=== PATIENT | female | born 1995 | race Caucasian/White ===

== ENCOUNTER → 2019-12-09 | Outpatient (CLI) | payer MEDICAID, OTHER ==
--- NOTE | 2019-12-10 04:15 | MR ---
EXAMINATION TYPE: MR brain wo/w con DATE OF EXAM: 12/09/2019 COMPARISON: None HISTORY: Swollen optic nerves CONTRAST: Standard multiplanar, multisequence MRI departmental protocol utilizing 8.5 mL intravenous Gadavist g adolinium contrast. Ventricles and sulci appear normal. There is no mass effect nor midline shift. There is no sign of in tracranial hemorrhage. There is a 3 mm focus of increased signal in the left side thalamus on the FLA IR images of doubtful significance. The brainstem is intact. Corpus callosum appears normal. Sella tu rcica appears normal. Cerebellum appears normal. Diffusion images show no evidence of acute infarct. The contrast images show no pathologic enhancement. There is normal enhancement of the venous sinuses . The globes are symmetric. There is no evidence of retro-orbital mass. There is no evidence of optic n erve abnormality. IMPRESSION: Negative MR scan of the brain. No evidence of demyelinating disease.
== END | disposition home or self-care (01) ==
LOC: RADMRIMAIN 14:53
PROVIDERS: ATTEND Ophthalmology
DX: H47.333 Pseudopapilledema of optic disc, bilateral (principal)
CPT/HCPCS: 70553; A9585

== ENCOUNTER 2020-07-07 18:18 | Emergency (ER) | payer MEDICAID, OTHER ==
[2020-07-07 18:24] VITALS: PULSE 78
[2020-07-07 19:05] LABS: Appearance,Urine Cloudy (Clear); Bilirubin,Urine Negative (Negative); Blood,Urine Small (Negative); Color,Urine Light Yellow; Glucose,Urine (UA) Negative (Negative); Ketones,Urine Negative (Negative); Leukocyte Esterase,Urine Negative (Negative); Mucus,Urine Rare /hpf; Nitrite,Urine Negative (Negative); PH, Urine 5.5 (5.0-8.0); Protein,Urine Negative (Negative); RBC,Urine <1 /hpf (0-5); Specific Gravity,Urine 1.007 (1.001-1.035); Squamous Epithelial Cell,Urine 1 /hpf (0-4); Urobilinogen,Urine <2.0 mg/dL (<2.0); WBC,Urine 1 /hpf (0-5)
[2020-07-07 19:07] LABS: Basophils # (A) 0.1 k/uL (0-0.2); Basophils % (A) 0 %; Eosinophils # (A) 0.2 k/uL (0-0.7); Eosinophils % (A) 2 %; HCT 42.4 % (34.0-46.0); HGB 13.6 gm/dL (11.4-16.0); Lymphocytes # (A) 3.8 k/uL (1.0-4.8); Lymphocytes % (A) 28 %; MCH 27.3 pg (25.0-35.0); MCHC 32.1 g/dL (31.0-37.0); MCV 84.9 fL (80.0-100.0); Monocytes # (A) 0.7 k/uL (0-1.0); Monocytes % (A) 5 %; Neutrophils # (A) 8.7 k/uL (1.3-7.7); Neutrophils % (A) 64 %; Platelet Count 294 k/uL (150-450); RBC 4.99 m/uL (3.80-5.40); WBC 13.6 k/uL (3.8-10.6)
[2020-07-07 19:20] LABS: ALT 15 U/L (4-34); AST 19 U/L (14-36); African American GFR (CKD) >90 (>60 ml/min/1.73 sqM); Albumin 4.8 g/dL (3.5-5.0); Alkaline Phosphatase 67 U/L (38-126); Anion Gap 13 mmol/L; Blood Urea Nitrogen 7 mg/dL (7-17); Calcium 9.5 mg/dL (8.4-10.2); Carbon Dioxide 23 mmol/L (22-30); Chloride 104 mmol/L (98-107); Glucose 96 mg/dL (74-99); Non-African American GFR(CKD) >90 (>60 ml/min/1.73 sqM); Potassium 3.8 mmol/L (3.5-5.1); Sodium 140 mmol/L (137-145); Total Bilirubin 0.3 mg/dL (0.2-1.3)
--- NOTE | 2020-07-07 19:26 | US ---
EXAMINATION TYPE: Transabdominal DATE OF EXAM: 07/07/2020 7:15 PM COMPARISON: NONE CLINICAL HISTORY: vag bleeding in . early ob with light bleeding today EXAM PERFORMED: OBTA/OBTV EXAM MEASUREMENTS: GESTATIONAL AGE / DATING Physician Established: Not yet established Dates by LMP: (6 weeks/4 days) EDC: 02/26/2021 Dates by First Scan: No previous this is first scan Dates by Current Scan for: Unable to date by today's study MATERNAL ANATOMY Uterus: 7.7 x 4.0 x 3.9cm Right Ovary: 2.6 x 1.7 x 1.5cm Left Ovary: not seen due to bowel Post CDS / Adnexa: wnl Presence of free fluid: mild within CDS Presence of corpus luteal cyst: no Presence of subchorionic bleed: no GESTATION / SURVEY No GS seen, endometrium = 1.0cm Date of LMP: 05/22/2020 Beta HcG (if available): 10 YESTERDAY, PENDING TODAY IMPRESSION: Uterus is empty. No adnexal mass or free fluid. No evidence of a gestational sac.
[2020-07-07 19:36] LABS: HCG,Quantitative Serum 4.2 mIU/mL
--- NOTE | 2020-07-07 19:41 | ED ---
Female Urogenital HPI - General Chief complaint: Vaginal Bleeding Stated complaint: Vaginal Bleeding, 4 Wks Time Seen by Provider: 07/07/20 18:24 Source: patient Mode of arrival: ambulatory Limitations: no limitations - History of Present Illness Initial comments: 25-year-old feel presenting today for chief complaint of vaginal bleeding in . pt states she had a positive fetus outpatient and an hCG level of 9 serum. She states that she now is having vaginal bleeding she is concerned of miscarriage. Patient denies pain patient denies heavy bleeding she states is like a. She denies additional complaints upon arrival patient is in no distress nontoxic appearance denies urinary symptoms. Last Menstrual Period: 05/22/20 - Related Data Allergies Allergy/AdvReac Type Severity Reaction Status Date / Time No Known Allergies Allergy Verified 07/07/20 18:24 Review of Systems ROS Statement: Those systems with pertinent positive or pertinent negative responses have been documented in the HPI. ROS Other: All systems not noted in ROS Statement are negative. Past Medical History Past Medical History: No Reported History History of Any Multi-Drug Resistant Organisms: None Reported Past Surgical History: No Surgical Hx Reported Past Psychological History: No Psychological Hx Reported Smoking Status: Never smoker Past Alcohol Use History: None Reported Past Drug Use History: None Reported General Exam - General Exam Comments Initial Comments: General: The patient is awake and alert, in no distress Eye: +3 mm pupils are equal, round and reactive to light, extra-ocular movements are intact. No nystagmus. There is normal conjunctiva bilaterally. No signs of icterus. Ears, nose, mouth and throat: There are moist mucous membranes and no oral lesions. Neck: The neck is supple, there is no tenderness or JVD. Cardiovascular: There is a regular rate and rhythm. No murmur, rub or gallop is appreciated. Respiratory: Lungs are clear to auscultation, respirations are non-labored, breath sounds are equal. No wheezes, stridor, rales, or rhonchi. Gastrointestinal: Soft, non-distended, non-tender abdomen without masses or organomegaly noted. There is no rebound or guarding present. : mild dark red blood small clots, os appears slightly open. no adnexal or cervical motion tenderness or discharge no odors. Musculoskeletal: Normal ROM, no tenderness. Strength 5/5. Sensation intact. Radial pulses equal bilaterally 2+. Neurological: A&O x 3. CN II-XII intact grossly, There are no obvious motor or sensory deficits. Coordination appears grossly intact. Speech is normal. Skin: Skin is warm and dry and no rashes or lesions are noted. Psychiatric: Cooperative, appropriate mood & affect, normal judgment. Limitations: no limitations Course Vital Signs 07/07/20 07/07/20 18:20 19:49 Temperature 97.8 F 97.4 F L Pulse Rate 78 78 Respiratory 16 18 Rate Blood Pressure 139/88 134/99 O2 Sat by Pulse 100 100 Oximetry Medical Decision Making - Medical Decision Making mild leukocytosis. Vaginal cultures pending. Urinalysisoverall unremarkable. Patient's ultrasound no IUP hCG less than <5. Not consistent with . concern patient miscarried patient is to repeat hCG in 2 days and follow up with [facility] patient is to return for pain or very heavy bleeding otherwise at this time feel patient stay for discharge with outpatient follow-up - Lab Data Result diagrams: 07/07/20 18:52 07/07/20 18:52 Lab Results 07/07/20 07/07/20 07/07/20 Range/Units 18:52 18:52 18:52 WBC 13.6 H (3.8-10.6) k/uL RBC 4.99 (3.80-5.40) m/uL Hgb 13.6 (11.4-16.0) gm/dL Hct 42.4 (34.0-46.0) % MCV 84.9 (80.0-100.0) fL MCH 27.3 (25.0-35.0) pg MCHC 32.1 (31.0-37.0) g/dL RDW 13.0 (11.5-15.5) % Plt Count 294 (150-450) k/uL MPV 8.0 Neutrophils % 64 % Lymphocytes % 28 % Monocytes % 5 % Eosinophils % 2 % Basophils % 0 % Neutrophils # 8.7 H (1.3-7.7) k/uL Lymphocytes # 3.8 (1.0-4.8) k/uL Monocytes # 0.7 (0-1.0) k/uL Eosinophils # 0.2 (0-0.7) k/uL Basophils # 0.1 (0-0.2) k/uL Sodium 140 (137-145) mmol/L Potassium 3.8 (3.5-5.1) mmol/L Chloride 104 (98-107) mmol/L Carbon Dioxide 23 (22-30) mmol/L Anion Gap 13 mmol/L BUN 7 (7-17) mg/dL Creatinine 0.75 (0.52-1.04) mg/dL Est GFR (CKD-EPI)AfAm >90 (>60 ml/min/1.73 sqM) Est GFR (CKD-EPI)NonAf >90 (>60 ml/min/1.73 sqM) Glucose 96 (74-99) mg/dL Calcium 9.5 (8.4-10.2) mg/dL Total Bilirubin 0.3 (0.2-1.3) mg/dL AST 19 (14-36) U/L ALT 15 (4-34) U/L Alkaline Phosphatase 67 (38-126) U/L Total Protein 8.0 (6.3-8.2) g/dL Albumin 4.8 (3.5-5.0) g/dL HCG, Quant 4.2 mIU/mL Urine Color Light Yellow Urine Appearance Cloudy H (Clear) Urine pH 5.5 (5.0-8.0) Ur Specific [place] 1.007 (1.001-1.035) Urine Protein Negative (Negative) Urine Glucose (UA) Negative (Negative) Urine Ketones Negative (Negative) Urine Blood Small H (Negative) Urine Nitrite Negative (Negative) Urine Bilirubin Negative (Negative) Urine Urobilinogen <2.0 (<2.0) mg/dL Ur Leukocyte Esterase Negative (Negative) Urine RBC <1 (0-5) /hpf Urine WBC 1 (0-5) /hpf Ur Squamous Epith Cells 1 (0-4) /hpf Urine Mucus Rare H (None) /hpf Trichomonas Ag (Rapid) (Negative) Blood Type Blood Type Recheck Bld Type Recheck Status 07/07/20 07/07/20 Range/Units 18:52 18:52 WBC (3.8-10.6) k/uL RBC (3.80-5.40) m/uL Hgb (11.4-16.0) gm/dL Hct (34.0-46.0) % MCV (80.0-100.0) fL MCH (25.0-35.0) pg MCHC (31.0-37.0) g/dL RDW (11.5-15.5) % Plt Count (150-450) k/uL MPV Neutrophils % % Lymphocytes % % Monocytes % % Eosinophils % % Basophils % % Neutrophils # (1.3-7.7) k/uL Lymphocytes # (1.0-4.8) k/uL Monocytes # (0-1.0) k/uL Eosinophils # (0-0.7) k/uL Basophils # (0-0.2) k/uL Sodium (137-145) mmol/L Potassium (3.5-5.1) mmol/L Chloride (98-107) mmol/L Carbon Dioxide (22-30) mmol/L Anion Gap mmol/L BUN (7-17) mg/dL Creatinine (0.52-1.04) mg/dL Est GFR (CKD-EPI)AfAm (>60 ml/min/1.73 sqM) Est GFR (CKD-EPI)NonAf (>60 ml/min/1.73 sqM) Glucose (74-99) mg/dL Calcium (8.4-10.2) mg/dL Total Bilirubin (0.2-1.3) mg/dL AST (14-36) U/L ALT (4-34) U/L Alkaline Phosphatase (38-126) U/L Total Protein (6.3-8.2) g/dL Albumin (3.5-5.0) g/dL HCG, Quant mIU/mL Urine Color Urine Appearance (Clear) Urine pH (5.0-8.0) Ur Specific [place] (1.001-1.035) Urine Protein (Negative) Urine Glucose (UA) (Negative) Urine Ketones (Negative) Urine Blood (Negative) Urine Nitrite (Negative) Urine Bilirubin (Negative) Urine Urobilinogen (<2.0) mg/dL Ur Leukocyte Esterase (Negative) Urine RBC (0-5) /hpf Urine WBC (0-5) /hpf Ur Squamous Epith Cells (0-4) /hpf Urine Mucus (None) /hpf Trichomonas Ag (Rapid) Negative (Negative) Blood Type A Positive Blood Type Recheck A Pos Bld Type Recheck Status No Disposition Clinical Impression: Threatened , Vaginal bleeding Disposition: HOME SELF-CARE Condition: Good Instructions (If sedation given, give patient instructions): Threatened Miscarriage (ED) Additional Instructions: Please use medication as discussed. Please follow-up with family doctor in the next 2 days. Can repeat HCG in 2 days. Follow-up with OBGYN in next week. Please return to emergency room if the symptoms increase or worsen or for any other concerns. Is patient prescribed a controlled substance at d/c from ED?: No Referrals: Gela Sweet DO [Primary Care Provider] - 1-2 days Time of Disposition: 19:41
[2020-07-07 20:00] VITALS: BP 134/99; RESP 18; TEMP 97.4
== END 2020-07-07 19:49 | disposition home or self-care (01) ==
LOC: EC 18:18
DX: O20.0 Threatened abortion (principal); Z3A.00 Weeks of gestation of pregnancy not specified
CPT/HCPCS: 36415; 76801; 76817; 80053; 81001; 84702; 85025; 86900; 86901; 87070; 87491; 87591; 87808; 99284

== ENCOUNTER 2020-11-10 14:17 | Emergency (ER) | payer BC, OTHER ==
[2020-11-10 14:48] VITALS: BP 133/91; PULSE 98; RESP 20; TEMP 98.6
[2020-11-10] MEDS ORDERED: SODIUM CHLORIDE 0.9% 1,000 ML IV STA (15:23)
[2020-11-10 16:26] LABS: Appearance,Urine Clear (Clear); Basophils # (A) 0.1 k/uL (0-0.2); Basophils % (A) 1 %; Bilirubin,Urine Negative (Negative); Blood,Urine Negative (Negative); Color,Urine Light Yellow; Eosinophils # (A) 0.2 k/uL (0-0.7); Eosinophils % (A) 2 %; Glucose,Urine (UA) Negative (Negative); HCT 40.7 % (34.0-46.0); Ketones,Urine Negative (Negative); Leukocyte Esterase,Urine Negative (Negative); Lymphocytes # (A) 2.4 k/uL (1.0-4.8); Lymphocytes % (A) 22 %; MCH 28.9 pg (25.0-35.0); MCHC 34.3 g/dL (31.0-37.0); MCV 84.2 fL (80.0-100.0); Mean Platelet Volume 7.9; Monocytes # (A) 0.6 k/uL (0-1.0); Monocytes % (A) 5 %; Neutrophils # (A) 7.5 k/uL (1.3-7.7); Neutrophils % (A) 69 %; Nitrite,Urine Negative (Negative); Platelet Count 282 k/uL (150-450); Protein,Urine Negative (Negative); RBC 4.84 m/uL (3.80-5.40); RDW 13.2 % (11.5-15.5); Urobilinogen,Urine <2.0 mg/dL (<2.0); WBC 10.8 k/uL (3.8-10.6)
[2020-11-10 16:40] LABS: ALT 14 U/L (4-34); AST 21 U/L (14-36); African American GFR (CKD) >90 (>60 ml/min/1.73 sqM); Albumin 4.3 g/dL (3.5-5.0); Alkaline Phosphatase 66 U/L (38-126); Anion Gap 8 mmol/L; Blood Urea Nitrogen 9 mg/dL (7-17); Calcium 9.3 mg/dL (8.4-10.2); Carbon Dioxide 23 mmol/L (22-30); Chloride 107 mmol/L (98-107); Glucose 91 mg/dL (74-99); Non-African American GFR(CKD) >90 (>60 ml/min/1.73 sqM); Potassium 4.1 mmol/L (3.5-5.1); Sodium 138 mmol/L (137-145); Total Bilirubin 0.2 mg/dL (0.2-1.3); Total Protein 6.9 g/dL (6.3-8.2)
--- NOTE | 2020-11-10 16:40 | ED ---
Female Urogenital HPI - General Chief complaint: Vaginal Bleeding Stated complaint: 5wks preg, spotting Time Seen by Provider: 11/10/20 15:21 Source: patient Mode of arrival: ambulatory Limitations: no limitations - History of Present Illness Initial comments: 25-year-old female, , 5 week based on last menstrual period presents to the emergency department with a chief complaint of vaginal bleeding. She reports having mild spotting only when she wipes this started about 2 hours ago but denies any abdominal cramping pain nausea vomiting. She reports a serum hCG was obtained and it was 17. She also tested multiple times last week with your test which IT positive. Patient is attempting to be . She denies any hematuria, hematochezia or melena. Denies increased urgency frequency or dysuria. Denies any back pain chest pain shortness of breath. Denies any fevers or chills. Her OB is Dr. Hernandez. She denies any other foul smell, vaginal discharge or irritation Last Menstrual Period: 09/30/20 - Related Data Allergies Allergy/AdvReac Type Severity Reaction Status Date / Time No Known Allergies Allergy Verified 11/10/20 14:48 Review of Systems ROS Statement: Those systems with pertinent positive or pertinent negative responses have been documented in the HPI. ROS Other: All systems not noted in ROS Statement are negative. Past Medical History Past Medical History: No Reported History History of Any Multi-Drug Resistant Organisms: None Reported Past Surgical History: No Surgical Hx Reported Past Psychological History: No Psychological Hx Reported Smoking Status: Never smoker Past Alcohol Use History: None Reported Past Drug Use History: Marijuana General Exam Limitations: no limitations General appearance: alert, in no apparent distress Head exam: Present: atraumatic, normocephalic, normal inspection Eye exam: Present: normal appearance, PERRL, EOMI ENT exam: Present: normal exam, normal oropharynx, mucous membranes moist Neck exam: Present: normal inspection, full ROM. Absent: tenderness, lym phadenopathy Respiratory exam: Present: normal lung sounds bilaterally. Absent: respiratory distress, wheezes, rales, rhonchi, stridor Cardiovascular Exam: Present: regular rate, normal rhythm, normal heart sounds. Absent: systolic murmur GI/Abdominal exam: Present: soft. Absent: distended, tenderness, guarding, rebound External exam: Present: normal external exam. Absent: erythema, swelling, lesions, ecchymosis Speculum exam: Present: normal speculum exam, cervical discharge (Skin blood noted at the vaginal vault). Absent: erythema, vaginal discharge, vaginal ble eding, foreign body Extremities exam: Present: normal inspection, full ROM, normal capillary refill. Absent: tenderness, pedal edema, joint swelling Back exam: Present: normal inspection, full ROM. Absent: tenderness, CVA tenderness (R), CVA tenderness (L) Neurological exam: Present: alert, oriented X3 Psychiatric exam: Present: normal affect, normal mood Skin exam: Present: warm, dry, intact, normal color Course Vital Signs 11/10/20 14:44 Temperature 98.6 F Pulse Rate 98 Respiratory 20 Rate Blood Pressure 133/91 O2 Sat by Pulse 99 Oximetry Medical Decision Making - Medical Decision Making 25-year-old female, , 5 week based on last menstrual period presents to the emergency department with a chief complaint of vaginal bleeding. Pelvic examination reveals scant amount of residual blood but no active bleeding. No abdominal tenderness. CBC reveals mild leukocytosis leg secondary to her . CMP and UA unremarkable. Patient had a hcg quant and it was 17. Repeat hCG today levels are 11.9. Pelvic ultrasound reveals no signs of an intrauterine . Patient likely having a miscarriage. I gave her a prescription for repeat hCG levels and also advised to follow up with her OB. Advised to return to department if her symptoms worsen. Case discussed with Dr. Kate. - Lab Data Result diagrams: 11/10/20 16:18 11/10/20 16:18 Lab Results 11/10/20 11/10/20 11/10/20 Range/Units 16:18 16:18 16:18 WBC 10.8 H (3.8-10.6) k/uL RBC 4.84 (3.80-5.40) m/uL Hgb 14.0 (11.4-16.0) gm/dL Hct 40.7 (34.0-46.0) % MCV 84.2 (80.0-100.0) fL MCH 28.9 (25.0-35.0) pg MCHC 34.3 (31.0-37.0) g/dL RDW 13.2 (11.5-15.5) % Plt Count 282 (150-450) k/uL MPV 7.9 Neutrophils % 69 % Lymphocytes % 22 % Monocytes % 5 % Eosinophils % 2 % Basophils % 1 % Neutrophils # 7.5 (1.3-7.7) k/uL Lymphocytes # 2.4 (1.0-4.8) k/uL Monocytes # 0.6 (0-1.0) k/uL Eosinophils # 0.2 (0-0.7) k/uL Basophils # 0.1 (0-0.2) k/uL Sodium 138 (137-145) mmol/L Potassium 4.1 (3.5-5.1) mmol/L Chloride 107 (98-107) mmol/L Carbon Dioxide 23 (22-30) mmol/L Anion Gap 8 mmol/L BUN 9 (7-17) mg/dL Creatinine 0.75 (0.52-1.04) mg/dL Est GFR (CKD-EPI)AfAm >90 (>60 ml/min/1.73 sqM) Est GFR (CKD-EPI)NonAf >90 (>60 ml/min/1.73 sqM) Glucose 91 (74-99) mg/dL Calcium 9.3 (8.4-10.2) mg/dL Total Bilirubin 0.2 (0.2-1.3) mg/dL AST 21 (14-36) U/L ALT 14 (4-34) U/L Alkaline Phosphatase 66 (38-126) U/L Total Protein 6.9 (6.3-8.2) g/dL Albumin 4.3 (3.5-5.0) g/dL HCG, Quant 11.9 mIU/mL Urine Color Light Yellow Urine Appearance Clear (Clear) Urine pH 5.0 (5.0-8.0) Ur Specific [place] 1.010 (1.001-1.035) Urine Protein Negative (Negative) Urine Glucose (UA) Negative (Negative) Urine Ketones Negative (Negative) Urine Blood Negative (Negative) Urine Nitrite Negative (Negative) Urine Bilirubin Negative (Negative) Urine Urobilinogen <2.0 (<2.0) mg/dL Ur Leukocyte Esterase Negative (Negative) Disposition Clinical Impression: Vaginal bleeding, Miscarriage Disposition: HOME SELF-CARE Condition: Stable Instructions (If sedation given, give patient instructions): Miscarriage (ED) Additional Instructions: Repeat obtaining hCG levels. Follow-up with her primary care physician. Return to emergency department if symptoms worsen. Is patient prescribed a controlled substance at d/c from ED?: No Referrals: Gela Sweet DO [Primary Care Provider] - 1-2 days Time of Disposition: 17:25
[2020-11-10 16:57] LABS: HCG,Quantitative Serum 11.9 mIU/mL
--- NOTE | 2020-11-10 17:02 | US ---
EXAMINATION TYPE: Transabdominal DATE OF EXAM: 11/10/2020 4:44 PM COMPARISON: NONE CLINICAL HISTORY: 4 week , vaginal bleeding. Spotting x 3 hours, 1, para 1, miscarria ge 1 EXAM PERFORMED: Transabdominal (TA) EXAM MEASUREMENTS: GESTATIONAL AGE / DATING Physician Established: Not yet established Dates by LMP: (5 weeks/6 days) EDC: 07/07/2021 Dates by First Scan: No previous this is first scan Dates by Current Scan for: No IUP seen at this t gregorio MATERNAL ANATOMY Uterus: 8.3 x 4.0 x 4.9cm, anteverted Endometrium: 1.2cm Right Ovary: 2.8 x 1.6 x 1.4cm Left Ovary: 3.0 x 1.9 x 2.2cm, 1.2 x 1.1 x 1.3cm hypoechoic area Post CDS / Adnexa: wnl Presence of free fluid: no Presence of corpus luteal cyst: not seen Presence of subchorionic bleed: no GESTATION / SURVEY IUP: No IUP seen at this time Date of LMP: 09/30/2020 Beta HcG (if available): Not available at time of exam IMPRESSION: No evidence of intrauterine gestational sac. No adnexal mass.
== END 2020-11-10 17:52 | disposition home or self-care (01) ==
LOC: EC 14:17
DX: O03.9 Complete or unspecified spontaneous abortion without complication (principal)
CPT/HCPCS: 36415; 76801; 80053; 81003; 84702; 85025; 87070; 96360; 96361; 99284

== ENCOUNTER 2021-01-25 12:04 | Emergency (ER) | payer BC, OTHER ==
[2021-01-25 13:01] VITALS: TEMP 98.6
--- NOTE | 2021-01-25 13:21 | ED ---
General Adult HPI - General Chief complaint: ENT Stated complaint: TMJ Time Seen by Provider: 01/25/21 13:00 Source: patient, RN notes reviewed Mode of arrival: ambulatory Limitations: no limitations - History of Present Illness Initial comments: Patient is a pleasant 25-year-old female presenting to the emergency department concerns for jaw dislocation. Patient states this morning she was chewing her vitamin and felt a pop right TMJ. Patient has had discomfort since that time. Patient states she is slightly limited and fully opening her mouth. No dyspnea. No history of similar symptoms previously. - Related Data Home Medications Medication Instructions Recorded Confirmed Multivitamins, Thera [Multivitamin 1 tab PO DAILY 01/25/21 01/25/21 (formulary)] Allergies Allergy/AdvReac Type Severity Reaction Status Date / Time No Known Allergies Allergy Verified 01/25/21 13:35 Review of Systems ROS Statement: Those systems with pertinent positive or pertinent negative responses have been documented in the HPI. ROS Other: All systems not noted in ROS Statement are negative. Constitutional: Denies: fever Eyes: Denies: eye pain ENT: Reports: as per HPI. Denies: ear pain Respiratory: Denies: cough Cardiovascular: Denies: chest pain Endocrine: Denies: fatigue Gastrointestinal: Denies: abdominal pain Genitourinary: Denies: dysuria Musculoskeletal: Denies: back pain Skin: Denies: rash Neurological: Denies: weakness Past Medical History Past Medical History: No Reported History History of Any Multi-Drug Resistant Organisms: None Reported Past Surgical History: No Surgical Hx Reported Past Psychological History: No Psychological Hx Reported Smoking Status: Never smoker Past Alcohol Use History: None Reported Past Drug Use History: Marijuana General Exam Limitations: no limitations General appearance: alert, in no apparent distress Head exam: Present: atraumatic Eye exam: Present: normal appearance ENT exam: Present: normal oropharynx, other (Mild discomfort right TMJ. No obvious dislocation. There is slight limitation with fully opening the mouth. Patient is able to close mouth without difficulty. Teeth align normally.) Neck exam: Present: normal inspection Respiratory exam: Present: normal lung sounds bilaterally Cardiovascular Exam: Present: regular rate, normal rhythm Neurological exam: Present: alert, CN II-XII intact Psychiatric exam: Present: normal affect, normal mood Skin exam: Present: normal color Course Vital Signs 01/25/21 12:58 Temperature 98.6 F Pulse Rate 85 Respiratory 18 Rate Blood Pressure 119/81 O2 Sat by Pulse 99 Oximetry Medical Decision Making - Medical Decision Making Patient reevaluated and updated. - Radiology Data Radiology results: image reviewed (Mandible x-ray without evidence of fracture or dislocation.) Disposition Clinical Impression: TMJ (sprain of temporomandibular joint) Disposition: HOME SELF-CARE Condition: Stable Instructions (If sedation given, give patient instructions): Temporomandibular Disorder (ED) Additional Instructions: [id number] Motrin as needed. Limit use of the jaw. No chewing gum or steak or similar. Ice to affected area. If symptoms continue follow-up with oral maxillary facial or dentist, number provided. Please do follow-up with primary care physician in the next day or 2 for recheck. Return for increased pain, worsening or changing symptoms or other concerns. Is patient prescribed a controlled substance at d/c from ED?: No Referrals: Gela Sweet DO [Primary Care Provider] - 1-2 days Travis Pavon DDS [STAFF PHYSICIAN] - 1-2 days Time of Disposition: 13:59
--- NOTE | 2021-01-25 13:42 | XR ---
EXAMINATION TYPE: XR mandible complete DATE OF EXAM: 01/25/2021 COMPARISON: NONE HISTORY: Popping injury with pain; rule out dislocation. TECHNIQUE: Complete mandible with open and closed mouth frontal along with both oblique projections a nd true lateral projection. FINDINGS: No acute fracture or dislocation. Temporomandibular joints are both maintained bilaterally and symmetric. Overlying soft tissue is unremarkable. IMPRESSION: As above.
[2021-01-25 14:15] VITALS: BP 117/76; PULSE 54; RESP 16
== END 2021-01-25 14:15 | disposition home or self-care (01) ==
LOC: EC 12:04
DX: S03.41XA Sprain of jaw, right side, initial encounter (principal); F12.90 Cannabis use, unspecified, uncomplicated; X50.1XXA Overexertion from prolonged static or awkward postures, initial encounter
CPT/HCPCS: 70110; 99283

== ENCOUNTER → 2021-02-12 | Outpatient (CLI) | payer OTHER | END | disposition home or self-care (01) | LOC: LABWHC1 16:14 | PROVIDERS: ATTEND Obstetrics & Gynecology | DX: N92.6 Irregular menstruation, unspecified (principal) | CPT/HCPCS: 36415; 84702 ==

== ENCOUNTER → 2021-05-22 | Outpatient (CLI) | payer BC, OTHER ==
--- NOTE | 2021-05-22 11:54 | US ---
EXAMINATION TYPE: US abdomen limited DATE OF EXAM: 05/22/2021 COMPARISON: Pain CLINICAL HISTORY: R10.11 RUQ ABDOMINAL PAIN. Pain EXAM MEASUREMENTS: Liver Length: 16.7 cm Gallbladder Wall: 0.1 cm CBD: 0.3 cm Right Kidney: 10.2 x 4.5 x 4.8 cm Pancreas: wnl Liver: wnl Gallbladder: wnl Evidence for sonographic Lorenzo's sign: neg CBD: wnl Right Kidney: No hydronephrosis or masses seen IMPRESSION: No acute process.
== END | disposition home or self-care (01) ==
LOC: RADUSWWP 10:12
PROVIDERS: ATTEND Obstetrics & Gynecology
DX: R10.11 Right upper quadrant pain (principal)
CPT/HCPCS: 76705

== ENCOUNTER 2021-06-29 14:32 | Emergency (ER) | payer BC, OTHER ==
[2021-06-29 14:36] VITALS: TEMP 98.7
[2021-06-29] MEDS ORDERED: SODIUM CHLORIDE 0.9% 1,000 ML IV STA (16:45)
--- NOTE | 2021-06-29 16:49 | ED ---
General Adult HPI - General Chief complaint: Dizziness Stated complaint: 24 wks preg/sob/high HR/cramping Time Seen by Provider: 06/29/21 16:36 Source: patient, RN notes reviewed Mode of arrival: ambulatory Limitations: no limitations - History of Present Illness Initial comments: This is a pleasant 26-year-old female who presents to emergency department complaining of chest pressure, shortness of breath, lightheadedness, and intermittent abdominal pain. The patient states she was at work at about noon when she developed some shortness of breath and chest pressure. Patient states it felt like something was sitting on her chest. About an hour later she started getting some fleeting sharp pains in her abdomen. She denies any vaginal bleeding. She denies any vaginal leakage. Patient is 24 weeks gestation. She is A0. No other health problems. They said they shortness of breath and chest discomfort has essentially subsided. She still getting some fleeting abdominal discomfort. The abdominal discomfort is not coming consistent intervals. No headache, no fever or chills, no changes in vision or hearing, no sore throat or difficulty with speech, no neck pain, no nausea or vomiting, no changes in urination or bowel movements, no numbness or tingling, no extremity pain, no skin rashes or lesions. - Related Data Home Medications Medication Instructions Recorded Confirmed No Known Home Medications 06/29/21 06/29/21 Allergies Allergy/AdvReac Type Severity Reaction Status Date / Time No Known Allergies Allergy Verified 06/29/21 17:12 Review of Systems ROS Statement: Those systems with pertinent positive or pertinent negative responses have been documented in the HPI. ROS Other: All systems not noted in ROS Statement are negative. Past Medical History Past Medical History: No Reported History History of Any Multi-Drug Resistant Organisms: None Reported Past Surgical History: No Surgical Hx Reported Past Psychological History: No Psychological Hx Reported Smoking Status: Never smoker Past Alcohol Use History: None Reported Past Drug Use History: Marijuana General Exam - General Exam Comments Initial Comments: Healthy-appearing 26-year-old female in no distress. Vital signs are reviewed and are stable. SpO2 is 100% on room air. Heart rate is 78. Limitations: no limitations General appearance: alert, in no apparent distress Head exam: Present: atraumatic, normocephalic, normal inspection Eye exam: Present: normal appearance, PERRL, EOMI. Absent: scleral icterus, conjunctival injection, periorbital swelling ENT exam: Present: normal exam, mucous membranes moist Neck exam: Present: normal inspection. Absent: tenderness, meningismus, lymphadenopathy Respiratory exam: Present: normal lung sounds bilaterally. Absent: respiratory distress, wheezes, rales, rhonchi, stridor Cardiovascular Exam: Present: regular rate, normal rhythm, normal heart sounds. Absent: systolic murmur, diastolic murmur, rubs, gallop, clicks GI/Abdominal exam: Present: soft, normal bowel sounds, other (Gravid uterus consistent with dates. No tenderness). Absent: distended, tenderness, guarding, rebound, rigid Extremities exam: Present: normal inspection, full ROM, normal capillary refill. Absent: tenderness, pedal edema, joint swelling, calf tenderness Back exam: Present: normal inspection Neurological exam: Present: alert, oriented X3, CN II-XII intact Psychiatric exam: Present: normal affect, normal mood Skin exam: Present: warm, dry, intact, normal color. Absent: rash Course Vital Signs 06/29/21 06/29/21 14:33 18:00 Temperature 98.7 F Pulse Rate 78 73 Respiratory 20 18 Rate Blood Pressure 123/80 126/85 O2 Sat by Pulse 100 99 Oximetry - Reevaluation(s) Reevaluation #1: 06/29/21 17:50 Medical record is reviewed Symptoms are improved here in the emergency department Patient is informed of results and questions answered Patient in no distress EKG Findings - EKG Comments: EKG Findings:: EKG done at 5:07 PM and reviewed by the attending physician reveals a ventricular rate of 73. QTC of 473. Normal intervals otherwise. No evidence of acute ST elevation. Inverted T wave in lead 3. Biphasic P wave and V3. No other acute changes. Normal axis. Medical Decision Making - Medical Decision Making General workup to include abdominal/cardiac workup, plan for obstetric consultation. Case was immediately discussed with ED attending physician regarding her clinical workup. We'll touch base with the mother baby as the patient's main symptoms at this time of fleeting abdominal pains. We'll order an ultrasound. Presentation not consistent with pulmonary embolism as the patient has no respiratory distress, no tachycardia, SpO2 is 100% on room air. A BMP. We will complete the cardiac evaluation, will get heart tones. They will send somebody from the unit. Plan to send the patient to mother-baby for evaluation. Patient was improved prior to discharge. Troponin was negative. EKG was essentially normal. All findings reviewed with the patient as well as ED attending physician, Dr. Meade. Patient will be sent to mother-baby for e valuation. Follow-up with your regular physician as directed. Return to the ER immediately if any symptoms worsen, new symptoms arise, or any other problems develop. I did discuss the possibility of false negative COVID-19 testing. Ultrasound shows a 24 week 6 day gestation with heart rate of 146. No other complicating findings. Patient released to mother-baby - Lab Data Result diagrams: 06/29/21 16:57 06/29/21 16:57 Lab Results 06/29/21 06/29/21 06/29/21 Range/Units 14:41 16:57 16:57 WBC 11.1 H (3.8-10.6) k/uL RBC 4.14 (3.80-5.40) m/uL Hgb 12.5 (11.4-16.0) gm/dL Hct 37.0 (34.0-46.0) % MCV 89.5 (80.0-100.0) fL MCH 30.3 (25.0-35.0) pg MCHC 33.8 (31.0-37.0) g/dL RDW 13.8 (11.5-15.5) % Plt Count 230 (150-450) k/uL MPV 8.4 Neutrophils % 73 % Lymphocytes % 20 % Monocytes % 5 % Eosinophils % 1 % Basophils % 0 % Neutrophils # 8.1 H (1.3-7.7) k/uL Lymphocytes # 2.2 (1.0-4.8) k/uL Monocytes # 0.5 (0-1.0) k/uL Eosinophils # 0.2 (0-0.7) k/uL Basophils # 0.0 (0-0.2) k/uL Sodium 136 L (137-145) mmol/L Potassium 3.5 (3.5-5.1) mmol/L Chloride 106 (98-107) mmol/L Carbon Dioxide 20 L (22-30) mmol/L Anion Gap 10 mmol/L BUN 5 L (7-17) mg/dL Creatinine 0.45 L (0.52-1.04) mg/dL Est GFR (CKD-EPI)AfAm >90 (>60 ml/min/1.73 sqM) Est GFR (CKD-EPI)NonAf >90 (>60 ml/min/1.73 sqM) Glucose 91 (74-99) mg/dL Calcium 8.9 (8.4-10.2) mg/dL Total Bilirubin 0.4 (0.2-1.3) mg/dL AST 17 (14-36) U/L ALT 10 (4-34) U/L Alkaline Phosphatase 69 (38-126) U/L Troponin I (0.000-0.034) ng/mL Total Protein 6.9 (6.3-8.2) g/dL Albumin 3.8 (3.5-5.0) g/dL Lipase 64 (23-300) U/L Urine Color Urine Appearance (Clear) Urine pH (5.0-8.0) Ur Specific [place] (1.001-1.035) Urine Protein (Negative) Urine Glucose (UA) (Negative) Urine Ketones (Negative) Urine Blood (Negative) Urine Nitrite (Negative) Urine Bilirubin (Negative) Urine Urobilinogen (<2.0) mg/dL Ur Leukocyte Esterase (Negative) Urine RBC (0-5) /hpf Urine WBC (0-5) /hpf Ur Squamous Epith Cells (0-4) /hpf Amorphous Sediment (None) /hpf Urine Mucus (None) /hpf Coronavirus (PCR) Not Detected (Not Detectd) 06/29/21 06/29/21 Range/Units 16:57 16:59 WBC (3.8-10.6) k/uL RBC (3.80-5.40) m/uL Hgb (11.4-16.0) gm/dL Hct (34.0-46.0) % MCV (80.0-100.0) fL MCH (25.0-35.0) pg MCHC (31.0-37.0) g/dL RDW (11.5-15.5) % Plt Count (150-450) k/uL MPV Neutrophils % % Lymphocytes % % Monocytes % % Eosinophils % % Basophils % % Neutrophils # (1.3-7.7) k/uL Lymphocytes # (1.0-4.8) k/uL Monocytes # (0-1.0) k/uL Eosinophils # (0-0.7) k/uL Basophils # (0-0.2) k/uL Sodium (137-145) mmol/L Potassium (3.5-5.1) mmol/L Chloride (98-107) mmol/L Carbon Dioxide (22-30) mmol/L Anion Gap mmol/L BUN (7-17) mg/dL Creatinine (0.52-1.04) mg/dL Est GFR (CKD-EPI)AfAm (>60 ml/min/1.73 sqM) Est GFR (CKD-EPI)NonAf (>60 ml/min/1.73 sqM) Glucose (74-99) mg/dL Calcium (8.4-10.2) mg/dL Total Bilirubin (0.2-1.3) mg/dL AST (14-36) U/L ALT (4-34) U/L Alkaline Phosphatase (38-126) U/L Troponin I <0.012 (0.000-0.034) ng/mL Total Protein (6.3-8.2) g/dL Albumin (3.5-5.0) g/dL Lipase (23-300) U/L Urine Color Yellow Urine Appearance Cloudy H (Clear) Urine pH 6.5 (5.0-8.0) Ur Specific Jasper 1.019 (1.001-1.035) Urine Protein Negative (Negative) Urine Glucose (UA) Negative (Negative) Urine Ketones 1+ H (Negative) Urine Blood Negative (Negative) Urine Nitrite Negative (Negative) Urine Bilirubin Negative (Negative) Urine Urobilinogen <2.0 (<2.0) mg/dL Ur Leukocyte Esterase Moderate H (Negative) Urine RBC 1 (0-5) /hpf Urine WBC 3 (0-5) /hpf Ur Squamous Epith Cells 2 (0-4) /hpf Amorphous Sediment Moderate H (None) /hpf Urine Mucus Rare H (None) /hpf Coronavirus (PCR) (Not Detectd) Disposition Clinical Impression: Lightheadedness, Chest discomfort, Abdominal pain affecting Disposition: HOME SELF-CARE Condition: Good Instructions (If sedation given, give patient instructions): Chest Pain (ED), Abdominal Pain in (ED), Dizziness (ED) Is patient prescribed a controlled substance at d/c from ED?: No Referrals: Gela Sweet DO [Primary Care Provider] - 1-2 days Time of Disposition: 18:37
[2021-06-29 17:08] LABS: Basophils % (A) 0 %; Eosinophils # (A) 0.2 k/uL (0-0.7); Eosinophils % (A) 1 %; HGB 12.5 gm/dL (11.4-16.0); Lymphocytes # (A) 2.2 k/uL (1.0-4.8); Lymphocytes % (A) 20 %; MCH 30.3 pg (25.0-35.0); MCHC 33.8 g/dL (31.0-37.0); MCV 89.5 fL (80.0-100.0); Mean Platelet Volume 8.4; Monocytes # (A) 0.5 k/uL (0-1.0); Monocytes % (A) 5 %; Neutrophils # (A) 8.1 k/uL (1.3-7.7); Neutrophils % (A) 73 %; Platelet Count 230 k/uL (150-450); RBC 4.14 m/uL (3.80-5.40); RDW 13.8 % (11.5-15.5); WBC 11.1 k/uL (3.8-10.6)
[2021-06-29 17:17] LABS: ALT 10 U/L (4-34); AST 17 U/L (14-36); African American GFR (CKD) >90 (>60 ml/min/1.73 sqM); Albumin 3.8 g/dL (3.5-5.0); Alkaline Phosphatase 69 U/L (38-126); Anion Gap 10 mmol/L; Blood Urea Nitrogen 5 mg/dL (7-17); Calcium 8.9 mg/dL (8.4-10.2); Carbon Dioxide 20 mmol/L (22-30); Chloride 106 mmol/L (98-107); Glucose 91 mg/dL (74-99); Lipase 64 U/L (23-300); Non-African American GFR(CKD) >90 (>60 ml/min/1.73 sqM); Potassium 3.5 mmol/L (3.5-5.1); Sodium 136 mmol/L (137-145); Total Bilirubin 0.4 mg/dL (0.2-1.3); Total Protein 6.9 g/dL (6.3-8.2)
[2021-06-29 17:30] LABS: Amorphous Sediment,Urine Moderate /hpf; Appearance,Urine Cloudy (Clear); Bilirubin,Urine Negative (Negative); Blood,Urine Negative (Negative); Color,Urine Yellow; Glucose,Urine (UA) Negative (Negative); Ketones,Urine 1+ (Negative); Leukocyte Esterase,Urine Moderate (Negative); Mucus,Urine Rare /hpf; Nitrite,Urine Negative (Negative); PH, Urine 6.5 (5.0-8.0); Protein,Urine Negative (Negative); RBC,Urine 1 /hpf (0-5); Specific Gravity,Urine 1.019 (1.001-1.035); Squamous Epithelial Cell,Urine 2 /hpf (0-4); Urobilinogen,Urine <2.0 mg/dL (<2.0); WBC,Urine 3 /hpf (0-5)
--- NOTE | 2021-06-29 17:59 | US ---
EXAMINATION TYPE: US OB >= 14 wk fetus DATE OF EXAM: 06/29/2021 COMPARISON: None CLINICAL HISTORY: Abdominal painSOB and abdominal pain for the past 5-6 Hours G 2 P1 TECHNIQUE: Transabdominal (TA) GESTATIONAL AGE / DATING Dates by LMP: (24 weeks/5 days) EDC: 10/14/2021 Dates by Current Scan: (24 weeks/6 days) EDC: 10/13/2021 Beta HCG (if available): Not available at this time SURVEY IUP: Single PLACENTA: Posterior PREVIA: No Previa CIRO: 14.4 cm Normal CERVICAL LENGTH (transabdominal: norm > 3.0cm): 3.3 cm ( BIOMETRY PRESENTATION: Breech LIE: Longitudinal BPD: 6.0 cm 24 weeks / 5 days HC: 22.5 cm 24 weeks / 5 days AC: 20.3 cm 25 weeks / 0 days FL: 4.5 cm 24 weeks / 5 days ESTIMATED WEIGHT IN GRAMS: 732 grams ESTIMATED WEIGHT IN LBS/OZ: 1 lbs. 10 oz. WEIGHT PERCENTAGE BASED ON ESTABLISHED DATES: 42% HC/AC: 1.1 Normal FL/AC: 22 Normal HEART RATE: 146 bpm RHYTHM: Normal Single live IUP IMPRESSION: The ultrasound gestational age is 24 weeks and 6 days. No complicating process seen.
[2021-06-29 18:01] VITALS: BP 126/85; PULSE 73; RESP 18
== END 2021-06-29 18:51 | disposition home or self-care (01) ==
LOC: EC 14:32
DX: O26.892 Other specified pregnancy related conditions, second trimester (principal); O99.891 Other specified diseases and conditions complicating pregnancy; R42 Dizziness and giddiness; R07.89 Other chest pain; R06.02 Shortness of breath; R10.9 Unspecified abdominal pain; Z3A.24 24 weeks gestation of pregnancy; Z20.822 Contact with and (suspected) exposure to COVID-19
CPT/HCPCS: 36415; 76805; 80053; 81001; 83690; 84484; 85025; 87635; 93005; 99285

== ENCOUNTER 2021-06-29 18:58 | Outpatient (CLI) | payer BC, OTHER ==
[2021-06-29 19:45] VITALS: BP 126/73; PULSE 75; RESP 16; TEMP 97.9
--- NOTE | 2021-07-11 11:57 | P.MSEPDOC ---
Presenting Problems - Arrival Data Date of Arrival on Unit: 06/29/21 Time of Arrival on Unit: 18:58 Mode of Transport: Ambulatory - Complaint OB-Reason for Admission/Chief Complaint: Other Comment: cramping Medical History - Information : 2 Para: 1 Term: 1 : 0 Abortions: Spontaneous or Elective: 0 Number of Living Children: 1 - Gestational Age Gestational Age by COREY (wks/days): 24 Weeks and 5 Days Review of Systems - Review of Systems Constitutional: No problems Breast: No problems ENT: No problems Cardiovascular: No problems Respiratory: No problems Gastrointestinal: No problems Genitourinary: No problems Musculoskeletal: No problems Neurological: No problems Skin: No problems Vital Signs - Temperature Temperature: 97.9 F Temperature Source: Oral - Pulse Pulse Oximetery Pulse Rate: 75 Pulse Assessment Method: Pulse Oximetry - Respirations Respiratory Rate: 16 Oxygen Delivery Method: Room Air O2 Sat by Pulse Oximetry: 100 - Blood Pressure Right Arm Blood Pressure: 126/73 Blood Pressure Mean: 90 Blood Pressure Source: Automatic Cuff Medical Screen Scoring - Assessment - Baby A Baseline FHR: 130 Physician Notification - Physician Notified Physician Notified Date: 06/29/21 Physician Notified Time: 19:22 Physician: Lesli Buenrostro New Order Received: Yes - Notification Comment Comment: Dr. Buenrostro called, report given on maternal and status, pt was in ER for. chest pain/SOB, COVID negative, UA clean, U/S fine, however, pt was cramping. Pt denies. any cramping now and no contractions are graphing. FHTs are 130 and baby is very active. Orders to discharge pt home. Maternal Triage Index - Maternal Triage Index Presenting for scheduled procedure w/no complaint: No - Stat/Priority 1 Stat Priority 1: No - Urgent/Priority 2 Urgent Priority 2: Yes Provider Notified: Lesli Buenrostro Provider Notified Time: 19:22 Criteria Met for Priority 2: 24 5/7 weeks complaints of contractions Disposition - Disposition OB Disposition: Discharge to home Discharge Date: 06/29/21 Discharge Time: 19:30 I agree with the RN Medical Screening Exam: Yes Case reviewed; plan agreed upon as documented in EMR&OBIX.: Yes Diagnosis: PELVIC AND PERINEAL PAIN
== END 2021-06-29 19:30 | disposition home or self-care (01) ==
LOC: FBPOP 18:58
PROVIDERS: ATTEND Obstetrics & Gynecology
DX: O26.892 Other specified pregnancy related conditions, second trimester (principal); R10.2 Pelvic and perineal pain; Z3A.24 24 weeks gestation of pregnancy
CPT/HCPCS: 99213

== ENCOUNTER 2021-09-04 10:44 | Outpatient (CLI) | payer BC, OTHER ==
[2021-09-04 11:33] VITALS: BP 127/71; PULSE 86; RESP 16; TEMP 97.3
--- NOTE | 2021-09-04 12:51 | P.MSEPDOC ---
Presenting Problems - Arrival Data Date of Arrival on Unit: 09/04/21 Time of Arrival on Unit: 10:44 Mode of Transport: Ambulatory - Complaint OB-Reason for Admission/Chief Complaint: Possible Onset of Labor, Decreased Movement Comment: nausea, some contractions, has not felt baby move since woke up Medical History - Information : 2 Para: 1 Term: 1 : 0 Abortions: Spontaneous or Elective: 0 Number of Living Children: 1 - Gestational Age Gestational Age by COREY (wks/days): 34 Weeks and 2 Days - History Complications: Prior Review of Systems - Review of Systems Constitutional: No problems Breast: No problems ENT: No problems Cardiovascular: No problems Respiratory: No problems Gastrointestinal: No problems Genitourinary: No problems Musculoskeletal: No problems Neurological: No problems Skin: No problems Vital Signs - Temperature Temperature: 97.3 F Temperature Source: Temporal Artery Scan - Pulse Right Brachial Pulse Rate: 86 Pulse Assessment Method: Automatic Cuff - Respirations Respiratory Rate: 16 Oxygen Delivery Method: Room Air O2 Sat by Pulse Oximetry: 97 - Blood Pressure Right Arm Sitting Blood Pressure: 127/71 Blood Pressure Mean: 89 Blood Pressure Source: Automatic Cuff Medical Screen Scoring - Cervical Exam Dilation (cm): 0 Effacement (%): 0 Station: -2 Membranes: Intact - Uterine Contractions Intensity: Mild Resting: Soft to palpation - Assessment - Baby A Baseline FHR: 135 Heart Rate - NICHD Category: Category I (Normal) NST: Reactive Physician Notification - Physician Notified Physician Notified Date: 09/04/21 Physician Notified Time: 11:15 Physician: Yeimi Mane Order Received: Yes - Notification Comment Comment: d/c and follow up at scheduled appt on Thursday Maternal Triage Index - Prompt/Priority 3 Prompt Priority 3: Yes Criteria Met for Priority 3: 34 2/7 contractions, decreased movment Disposition - Disposition OB Disposition: Triage, Discharge to home, Written follow up instructions reviewed Discharge Date: 09/04/21 Discharge Time: 11:20 I agree with the RN Medical Screening Exam: Yes Case reviewed; plan agreed upon as documented in EMR&OBIX.: Yes Diagnosis: FALSE LABOR BEFORE 37 COMPLETED WEEKS OF GEST, THIRD TRI Additional Diagnoses: Decreased movement
== END 2021-09-04 11:20 ==
LOC: FBPOP 10:44
PROVIDERS: ATTEND Obstetrics & Gynecology
DX: O47.03 False labor before 37 completed weeks of gestation, third trimester (principal); Z3A.34 34 weeks gestation of pregnancy
CPT/HCPCS: 59025; 99213

== ENCOUNTER 2021-09-27 20:50 | Outpatient (CLI) | payer BC, OTHER ==
[2021-09-27 22:28] VITALS: BP 121/75; PULSE 92; RESP 18; TEMP 98
--- NOTE | 2021-09-28 14:00 | P.MSEPDOC ---
Presenting Problems - Arrival Data Date of Arrival on Unit: 09/27/21 Time of Arrival on Unit: 20:50 Mode of Transport: Ambulatory - Complaint OB-Reason for Admission/Chief Complaint: Possible Onset of Labor Comment: Patient arrives to triage with complaints of contractions since this morning. increasing in strength and frequency. Patient states that her underwear has been "damp" since 8am. Medical History - Information : 2 Para: 1 Term: 1 : 0 Abortions: Spontaneous or Elective: 0 Number of Living Children: 1 - Gestational Age Gestational Age by COREY (wks/days): 37 Weeks and 4 Days Review of Systems - Review of Systems Constitutional: No problems Breast: No problems ENT: No problems Cardiovascular: No problems Respiratory: No problems Gastrointestinal: No problems Genitourinary: No problems Musculoskeletal: No problems Neurological: No problems Skin: No problems Vital Signs - Temperature Temperature: 98.0 F Temperature Source: Oral - Pulse Right Brachial Pulse Rate: 92 Pulse Assessment Method: Automatic Cuff - Respirations Respiratory Rate: 18 Oxygen Delivery Method: Room Air O2 Sat by Pulse Oximetry: 98 - Blood Pressure Right Arm Blood Pressure: 121/75 Blood Pressure Mean: 90 Blood Pressure Source: Automatic Cuff Medical Screen Scoring - Cervical Exam Dilation (cm): 2 Effacement (%): 70 Station: -2 Membranes: Intact - Uterine Contractions Frequency From (mins): 7 Frequency To (mins): 15 Duration From (seconds): 30 Duration To (seconds): 60 Intensity: Mild Resting: Soft to palpation - Assessment - Baby A Baseline FHR: 125 Heart Rate - NICHD Category: Category I (Normal) NST: Reactive Physician Notification - Physician Notified Physician Notified Date: 09/27/21 Physician Notified Time: 22:05 Physician: Yeimi Mane Order Received: Yes - Notification Comment Comment: Patient to be discharged with instructions to rest and hydrate. patient instructed to return if contractions increase in strength and/or frequency. Patient updated on plan of care and is in agreement. Maternal Triage Index - Maternal Triage Index Presenting for scheduled procedure w/no complaint: No - Stat/Priority 1 Stat Priority 1: No - Urgent/Priority 2 Urgent Priority 2: No - Prompt/Priority 3 Prompt Priority 3: No - Non-Urgent/Priority 4 Non-Urgent Priority 4: Yes Criteria Met for Priority 4: 37 4/7 weeks with c/o early labor signs and possible rupture of membranes Disposition - Disposition OB Disposition: Discharge to home Discharge Date: 09/27/21 Discharge Time: 22:28 I agree with the RN Medical Screening Exam: Yes Case reviewed; plan agreed upon as documented in EMR&OBIX.: Yes Diagnosis: FALSE LABOR AT OR AFTER 37 COMPLETED WEEKS OF GESTATION
== END 2021-09-27 22:28 | disposition home or self-care (01) ==
LOC: FBPOP 20:50
PROVIDERS: ATTEND Obstetrics & Gynecology
DX: O47.1 False labor at or after 37 completed weeks of gestation (principal); Z3A.37 37 weeks gestation of pregnancy
CPT/HCPCS: 59025; 84112; 99213

== ENCOUNTER 2021-10-06 19:17 | Inpatient (IN) | payer BC, OTHER ==
[2021-10-06] MEDS ORDERED: OXYTOCIN 10 UNIT/ML 1 ML VIAL IM PRN (19:43)
[2021-10-06] MEDS ORDERED: LIDOCAINE 1% (PF) 10 MG/ML (30 ML SDV) SQ PRN (19:43)
[2021-10-06] MEDS ORDERED: METHYLERGONOVINE 0.2 MG/ML 1 ML AMP IM PRN (19:43)
[2021-10-06] MEDS ORDERED: CARBOPROST TROMETHAMINE 250 MCG/ML 1 ML AMP IM PRN (19:43)
[2021-10-06] MEDS ORDERED: TERBUTALINE 1 MG/ML VIAL SQ PRN (19:43)
[2021-10-06] MEDS ORDERED: OXYTOCIN 30 UNITS/500 ML NS 30 UNIT in SALINE 1 500ML.BAG IV SCH (19:45)
[2021-10-06] MEDS: LACTATED RINGERS 1,000 ML IV SCH (20:04)
--- NOTE | 2021-10-06 20:11 | P.HPOB ---
History of Present Illness H&P Date: 10/06/21 Chief Complaint: Spontaneous rupture of membranes 26-year-old presents at 38 weeks and 6 days with spontaneous rupture membranes at 1830. Her cervix is 37 m dilated, 60% effaced, -2 station. She is not aguilar. heart tones 135 with moderate variability and reactive. Review of Systems All systems: negative Constitutional: Denies chills, Denies fever Eyes: denies blurred vision, denies pain Ears, nose, mouth and throat: Denies headache, Denies sore throat Cardiovascular: Denies chest pain, Denies shortness of breath Respiratory: Denies cough Gastrointestinal: Denies abdominal pain, Denies diarrhea, Denies nausea, Denies vomiting Genitourinary: Denies dysuria, Denies hematuria Musculoskeletal: Denies myalgias Integumentary: Denies pruritus, Denies rash Neurological: Denies numbness, Denies weakness Psychiatric: Denies anxiety, Denies depression Endocrine: Denies fatigue, Denies weight change Past Medical History Past Medical History: No Reported History Additional Past Medical History / Comment(s): Obstetrical history: She's had care with Dr. Mane for this . Last she had Dr. Hernandez who induced her and delivered an 8 lbs. 6 oz. baby with fourth degree laceration. This laceration was repaired appropriately. Dr. Mane saw that she had a fourth degree laceration with her last delivery and offer the patient is section. Patient continues to tell me and has had conversations with Dr. Mane that she does not want a and we will risk the laceration. Blood type is A+, hepatitis B negative, rubella immune, RPR nonreactive, GBS negative History of Any Multi-Drug Resistant Organisms: None Reported Past Surgical History: No Surgical Hx Reported Smoking Status: Never smoker Medications and Allergies Home Medications Medication Instructions Recorded Confirmed Type Pnv No.95/Ferrous Fum/Folic AC 1 each PO DAILY 06/29/21 10/06/21 History [ Multivitamin Tablet] Allergies Allergy/AdvReac Type Severity Reaction Status Date / Time No Known Allergies Allergy Verified 09/27/21 21:09 Exam Osteopathic Statement: *. No significant issues noted on an osteopathic structural exam other than those noted in the History and Physical/Consult. Intake and Output 10/06/21 10/06/21 10/06/21 06:59 14:59 22:59 Other: Weight 94.801 kg Heart: Regular rate and rhythm Lungs: Clear to auscultation bilaterally Abdomen: Soft, nontender Extremities: Negative Homans sign Assessment and Plan (1) Spontaneous rupture of membranes Current Visit: Yes Status: Acute Code(s): [id number] - SNOMED Code(s): 749490461 (2) 38 weeks gestation of Current Visit: Yes Status: Acute Code(s): Z3A.38 - 38 WEEKS GESTATION OF SNOMED Code(s): 80993636 Plan: 1. Admit to family place 2. Pitocin augmentation as necessary per protocol 3. Anticipate normal vaginal delivery
[2021-10-06 21:02] LABS: Basophils % (A) 0 %; Eosinophils # (A) 0.2 k/uL (0-0.7); Eosinophils % (A) 1 %; HCT 38.5 % (34.0-46.0); HGB 12.5 gm/dL (11.4-16.0); Lymphocytes # (A) 2.6 k/uL (1.0-4.8); Lymphocytes % (A) 21 %; MCH 28.5 pg (25.0-35.0); MCHC 32.4 g/dL (31.0-37.0); MCV 87.8 fL (80.0-100.0); Mean Platelet Volume 10.1; Monocytes # (A) 0.6 k/uL (0-1.0); Monocytes % (A) 5 %; Neutrophils # (A) 8.5 k/uL (1.3-7.7); Neutrophils % (A) 70 %; Platelet Count 208 k/uL (150-450); RBC 4.39 m/uL (3.80-5.40); RDW 14.4 % (11.5-15.5); WBC 12.1 k/uL (3.8-10.6)
[2021-10-07] MEDS: LACTATED RINGERS 1,000 ML IV SCH ×2 (02:51→06:40)
[2021-10-07] MEDS ORDERED: BUTORPHANOL 1 MG/ML 1 ML VIAL IV PRN (04:59)
--- NOTE | 2021-10-07 06:03 | P.MSEPDOC ---
Presenting Problems - Arrival Data Date of Arrival on Unit: 10/06/21 Time of Arrival on Unit: 19:19 Mode of Transport: Ambulatory - Complaint OB-Reason for Admission/Chief Complaint: Rule Out SROM Comment: pt. presents to triage due to possible SROM at 1830, Amnisure positve Medical History - Information : 2 Para: 1 Term: 1 : 0 Abortions: Spontaneous or Elective: 0 Number of Living Children: 1 - Gestational Age Gestational Age by COREY (wks/days): 39 Weeks and 0 Days Review of Systems - Review of Systems Constitutional: No problems Breast: No problems ENT: No problems Cardiovascular: No problems Respiratory: No problems Gastrointestinal: No problems Genitourinary: No problems Musculoskeletal: No problems Neurological: No problems Skin: No problems Vital Signs - Temperature Temperature: 97.4 F Temperature Source: Temporal Artery Scan - Pulse Pulse Oximetery Pulse Rate: 100 Pulse Assessment Method: Automatic Cuff - Respirations Respiratory Rate: 16 Oxygen Delivery Method: Room Air O2 Sat by Pulse Oximetry: 96 - Blood Pressure Right Arm Blood Pressure: 127/79 Blood Pressure Mean: 95 Blood Pressure Source: Automatic Cuff Medical Screen Scoring - Cervical Exam Dilation (cm): 3 Effacement (%): 60 Station: -3 Membranes: Ruptured - Uterine Contractions Intensity: Mild Resting: Soft to palpation - Assessment - Baby A Baseline FHR: 120 Heart Rate - NICHD Category: Category I (Normal) NST: Reactive Physician Notification - Physician Notified Physician Notified Date: 10/07/21 Physician Notified Time: 19:39 Physician: Lesli Buenrostro New Order Received: Yes - Notification Comment Comment: admit for labor, pt. can have epideral when she wants, and to start pitocin Maternal Triage Index - Stat/Priority 1 Stat Priority 1: No - Urgent/Priority 2 Urgent Priority 2: No - Prompt/Priority 3 Prompt Priority 3: Yes Criteria Met for Priority 3: 38/6, positive amnisure Disposition - Disposition OB Disposition: Admit I agree with the RN Medical Screening Exam: Yes Case reviewed; plan agreed upon as documented in EMR&OBIX.: Yes Diagnosis: ENCOUNTER FOR FULL-TERM UNCOMPLICATED DELIVERY
[2021-10-07] MEDS ORDERED: BENZOCAINE/MENTHOL SPRAY 1 GM/SPRAY AEROSOL TOPICAL PRN (08:53)
[2021-10-07] MEDS ORDERED: diphenhydrAMINE 25 MG CAP PO PRN (08:53)
[2021-10-07] MEDS ORDERED: SIMETHICONE 80 MG CHEWABLE PO PRN (08:53)
[2021-10-07] MEDS ORDERED: ZOLPIDEM 5 MG TAB PO PRN (08:53)
[2021-10-07] MEDS ORDERED: diphenhydrAMINE 50 MG CAP PO PRN (08:53)
[2021-10-07] MEDS ORDERED: diphenhydrAMINE 50 MG/ML 1 ML VIAL IVP PRN ×2 (08:53)
[2021-10-07] MEDS ORDERED: ACETAMINOPHEN TAB 325 MG TAB PO PRN (08:53)
[2021-10-07] MEDS ORDERED: LANOLIN CREAM 5 GM TUBE TOPICAL PRN (08:53)
[2021-10-07] MEDS ORDERED: HYDROCORTISONE 2.5% RECTAL CREAM 30 GM TUBE RECTAL PRN (08:53)
[2021-10-07] MEDS: IBUPROFEN 600 MG TAB PO PRN ×2 (09:23→15:59)
[2021-10-07] MEDS ORDERED: ROPIVACAINE 100 MG, fentaNYL (PF). 200 MCG in SODIUM CHLORIDE 0.9% 76 ML EPIDURAL ONE (10:43)
[2021-10-07] MEDS: SENNOSIDES-DOCUSATE SODIUM 1 EACH TAB PO SCH (20:20)
[2021-10-07 20:32] VITALS: PULSE 82
[2021-10-08 07:42] LABS: Basophils # (A) 0.1 k/uL (0-0.2); Basophils % (A) 0 %; Eosinophils # (A) 0.2 k/uL (0-0.7); Eosinophils % (A) 1 %; HCT 34.1 % (34.0-46.0); HGB 10.7 gm/dL (11.4-16.0); Lymphocytes # (A) 2.6 k/uL (1.0-4.8); Lymphocytes % (A) 19 %; MCH 27.7 pg (25.0-35.0); MCHC 31.4 g/dL (31.0-37.0); MCV 88.3 fL (80.0-100.0); Monocytes # (A) 0.7 k/uL (0-1.0); Monocytes % (A) 5 %; Neutrophils # (A) 9.9 k/uL (1.3-7.7); Neutrophils % (A) 73 %; Platelet Count 194 k/uL (150-450); RBC 3.86 m/uL (3.80-5.40); RDW 14.1 % (11.5-15.5); WBC 13.6 k/uL (3.8-10.6)
[2021-10-08] MEDS: SENNOSIDES-DOCUSATE SODIUM 1 EACH TAB PO SCH (08:02)
[2021-10-08 08:22] VITALS: BP 112/76; RESP 16; TEMP 97.6
--- NOTE | 2021-10-08 08:54 | P.DS ---
Providers Date of admission: 10/06/21 19:29 Expected date of discharge: 10/08/21 Attending physician: Yeimi Mane Primary care physician: Stated None Hospital Course: This is a 26 Mane female 2 para 1 at 39-0/7 weeks who presented in active labor with spontaneous rupture membranes. She delivered vaginally a viable male on 10/07/2021 with scores of 9 at 1 minute and 9 at 5 minutes and weight of 7 lbs. 1 oz. Her course was uncomplicated. She is working on breast-feeding but currently is supplementing with formula. Lochia is minimal. Her pain is well-controlled. Vital signs are stable. Abdomen is soft with fundus firm and nontender. Extremities show negative Homans. Impression is status post vaginal delivery day #1. Plan is to discharge home today. Routine instructions are given. She is advised follow-up in the office in 6 weeks for check. She is advised to call the office if she has any further questions or concerns prior to her appointment time. She will be given a prescription for ibuprofen. She has a breast pump at home. Procedures: Spontaneous vaginal delivery of a viable male on 10/07/2021 Patient Condition at Discharge: Stable Plan - Discharge Summary New Discharge Prescriptions: New Ibuprofen [Motrin] 600 mg PO Q6HR PRN #60 tab PRN Reason: Mild Pain (Scale 1 To 3) Continue Pnv No.95/Ferrous Fum/Folic AC [ Multivitamin Tablet] 1 each PO DAILY Discharge Medication List Pnv No.95/Ferrous Fum/Folic AC [ Multivitamin Tablet] 1 each PO DAILY 06/29/21 [History] Ibuprofen [Motrin] 600 mg PO Q6HR PRN #60 tab 10/08/21 [Rx] Follow up Appointment(s)/Referral(s): Yeimi Mane DO [Doctor of Osteopathic Medicine] - 6 Weeks Activity/Diet/Wound Care/Special Instructions: Instructions 1. Do not begin any exercise program for 3 weeks. 2. Do not resume sexual relations for 3 weeks or longer if uncomfortable. 3. You may take tub baths or showers at any time. 4. You may use tampons if desired after 3 weeks. 5. Keep the area of episiotomy (stitches) clean and dry. 6. If you are not nursing, wear a good fitting, supportive bra during the day and limit fluid intake for at least 1 week to prevent breast engorgement. 7. Call the office, [phone], within the next week to make appointment for your 6 week checkup if it has not already been made. 8. Report any of the following occurrences to the doctor promptly: a. Heavy, excessive bleeding b. Chills, fever c. Burning or frequency of urination d. Pain or redness and breasts if nursing e. Increasing pain or swelling in episiotomy (stitches). In addition to the above instructions, the following additional should be followed: 1. No heavy lifting or straining (exercising) until after 6 week checkup. 2. Keep abdominal incision clean and dry: You may wear a dressing if more comfortable. 3. Make office appointment for 10 days after going home or as instructed by her doctor. Discharge Disposition: HOME SELF-CARE
--- NOTE | 2021-10-08 13:06 | P.PROBDLV ---
Vaginal Delivery Note - . Vaginal Delivery Note: 26-year-old presents at 38 weeks and 6 days with spontaneous rupture membranes at 1830. Her cervix is 3cm dilated, 60% effaced, -2 station. She is not aguilar. heart tones 135 with moderate variability and reactive. Pitocin augmentation was started. She did get an epidural when she was uncomfortable. Her cervix was completely dilated by 7:47 AM on 10/07/2021. She pushed, and delivered a viable male infant over intact perineum under epidural anesthesia at 7:55 AM. Head delivered OA, anterior shoulder delivered gentle downward guidance followed by posterior shoulder and rest of body. Nose and mouth bulb suctioned, cord clamped and cut, infant placed mother's abdomen. Apgars 9, 9, weight 7 lbs. 1 oz. Placenta delivered spontaneous, intact with three-vessel cord at 7:58 AM. Vagina, cervix, perineum inspected. Second- degree midline laceration was repaired with 3-0 Vicryl. Estimated blood loss 200 mL. Mother and baby in stable condition.
== END 2021-10-08 12:20 | disposition home or self-care (01) | DRG 807 ==
LOC: FBPOP 19:17 → 4FBP 19:29
PROVIDERS: ADMIT Obstetrics & Gynecology; ATTEND Obstetrics & Gynecology
PROC: 10E0XZZ Delivery of Products of Conception, External Approach (ICD-10-PCS; principal; 2021-10-06)
DX: O80 Encounter for full-term uncomplicated delivery (principal); Z37.0 Single live birth; Z3A.39 39 weeks gestation of pregnancy
CPT/HCPCS: 84112; 85025; 86850; 86900; 86901; 99213